=== PATIENT | male | born 1955 | race Caucasian/White ===

== ENCOUNTER 2020-11-23 09:02 | Outpatient (CLI) | payer MEDICARE, SELFPAY | END 2020-11-23 09:03 | disposition home or self-care (01) | LOC: ANHCOVIDVC 09:03 | PROVIDERS: PCP Family Medicine Adolescent Medicine | DX: Z23 Encounter for immunization (principal) | CPT/HCPCS: 0001A; 91300 ==

== ENCOUNTER 2020-12-14 09:01 | Outpatient (CLI) | payer MEDICARE, SELFPAY | END 2020-12-14 09:02 | disposition home or self-care (01) | LOC: ANHCOVIDVC 09:03 | PROVIDERS: PCP Family Medicine Adolescent Medicine | DX: Z23 Encounter for immunization (principal) | CPT/HCPCS: 0002A; 91300 ==

== ENCOUNTER 2025-08-03 01:49 | Day surgery (SDC) | payer MEDICARE, SELFPAY ==
[2025-07-26 08:59] VITALS: BMI 20.2
--- OUTSIDE RECORDS SUMMARY | 2025-08-03 01:52 | XMS_ITS | Clinical Summary ---
Author Organization [facility] Address [address] [place] [id number] Care Team Providers Care Supervisor Metal Fabricating Name Role Phone José Antonio Ramos MD Primary Care Provider [phone] Social History Tobacco Use Types Packs/Day Years Used Date Smoking Tobacco: Never Assessed Sex and Gender Information Value Date Recorded Sex Assigned at Not on file Legal Sex Male 7:21 PM CDT Gender Identity Not on file Sexual Orientation Not on file Plan of Treatment Health Maintenance Due Date Last Done Comments Colorectal Cancer Screening Colonoscopy (10 Years) 1955 Hepatitis C 1971 DTaP, Tdap and Td Vaccines ( 1 - Tdap) 02/24/1972 Pneumococcal Vaccine: 50+ Ye ars (1 of 1 - PCV) 2003 Zoster Vaccines (1 of 2) 2003 COVID-19 Vaccine ( - 2024-2 6 season) 2025 Influenza Adult (#1) 2025 RSV Immunization or 60+ Years (1 - 1-dose 75+ series) 02/24/2028 Hepatitis A Vaccines Aged Out No long er eligible based on patient's age to complete this topic Meningococcal B Vaccine Aged Out No l onger eligible based on patient's age to complete this topic Meningococcal Vaccine Aged Out No alyssa sanford eligible based on patient's age to complete this topic RSV Immunizations Under 20 Months Aged Out No longer eligible based on patient's age to complete this topic Care Teams Supervisor Metal Fabricating Relationship Specialty Start Date End Date José Antonio Ramos MD [address] [place] [id number] PCP - General 04/29/11
--- OUTSIDE RECORDS SUMMARY | 2025-08-03 01:52 | XMS_ITS | Clinical Summary ---
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 Gender Identity Not on file Sexual Orientation Not on file Plan of Treatment Health Maintenance Due Date Last Done Comments Hepatitis C Virus (HCV) Screening 1955 TdaP Immunization 1955 Cologuard 1998 Colonoscopy 1998 Colorectal Cancer Screening 1998 Immunochemical Fecal Occult Blood 1998 Pneumococcal Immunization (5 0+ years) (1 of 1 - PCV) 2003 Influenza Immunization (#1) 05/22/202506/22, 07/06/2019, 07/07/2018 SARS-COV-2 Immunization ( - season) 2025 08/29/2021, 12/14/2020, 11/23/2020 Respiratory Syncytial Virus (RSV) Immunization (Adult) (1 - 1-dose 75+ series) 02/24/2028 Zoster Immunization Completed 10/24/2020, 08/25/2020 Hepatitis B Immunization Aged Out No longer eligible based on patient's age to complete this topic Human Papillomavirus (HPV) Immunization Aged Out No longer eligible b ased on patient's age to complete this topic Meningococcal Immunization (ACWY) Aged Out No longer eligible b ased on patient's age to complete this topic Rotavirus Immunization Aged Out No lo nger eligible based on patient's age to complete this topic
[2025-08-03 06:51] VITALS: BP 157/76; PULSE 83; RESP 18; TEMP 36.5; O2SAT 99; BMI 19.5
--- NOTE | 2025-08-03 06:51 | WPDANESEPPF ---
Anes - Initial Pre Proc Eval Procedure: Operation Date: 08/03/25 08:00 Proposed Procedures p Screening Colonoscopy - Flaquito Buckley MD Date/Time: 08/03/25 06:51 Surgeon: Flaquito Buckley MD Pre Op Diagnosis: Screening Patient Data Age: 70 Gender: M Height: 1.68 m Weight: 57 kg Allergies Allergy/AdvReac Type Severity Reaction Status Date / Time No Known Allergies Allergy Verified 08/03/25 06:48 Home Medications ?Medication ?Instructions ?Recorded ?Confirmed ?Type minoxidil 2.5 mg tablet 2.5 mg PO DAILY 10/05/23 08/03/25 History vitamin B complex 1 tablet PO DAILY 10/20/23 08/03/25 History tadalafil 5 mg tablet (Cialis) 5 mg PO DAILY #90 tabs 12/12/24 08/03/25 Rx cholecalciferol (vitamin D3) 10 10 mcg PO DAILY 01/30/25 08/03/25 History mcg (400 unit) capsule (Vitamin D3) triamcinolone acetonide 0.1 % 1 applic topical BID PRN eczema 01/30/25 08/03/25 Rx topical cream #80 grams atorvastatin 20 mg tablet See Rx Instructions .Route 02/08/25 08/03/25 Rx .COMPLEX #100 tabs hydrocortisone 2.5 % topical cream 1 applic RECTAL DAILY PRN 05/03/25 08/03/25 Rx with perineal applicator hemorrhoids #30 grams (Anusol-HC) Patient hx anesthesia problems: none Family hx anesthesia problems: none Results Review: All pre-operative results and documents have been reviewed as part of the pre-operative evaluation. [facility] Past Medical History Medical History (Updated 08/02/25 @ 10:07 by Oleksandr Haas DO) GERD (gastroesophageal reflux disease) Pure hypercholesterolemia, unspecified Benign cyst of right kidney Orbital fracture Family History Family History (Updated 05/03/25 @ 09:53 by Kamala Zapata CMA) Father Throat cancer Mother Breast cancer Cancer of spine Social History Social History (Updated 05/03/25 @ 09:55 by Kamala Zapata CMA) Smoking status: Never smoker Alcohol intake: current Drinks per week: 3 Substance use: never Substance use type: does not use Do You Feel Safe in your Home?: Yes Lack of Transportation: No Lack of Food: Never True Current Housing: I Have Housing Concerned About Future Housing: No Difficulty Paying Gas/Electric Bills: No Difficulty Paying for Meds: No Currently Unemployed: No Education: Trade/Vocational Certificate Difficulty w/ Childcare or Family Care: No Anes - Eval Final PreProcedure Day of Procedure 08/03/25 06:51 Patient weight: normal Heart: regular rate and rhythm Lungs: clear to auscultation and normal air movement Airway: Mallampati scale class II Neurological: alert and oriented Last oral intake: >/= 8 hours ASA classification: II Emergent: no Anesthetic plan: proceed Anesthesia type and monitoring: general GIVS and standard monitoring Results Review: All pre-operative results and documents have been reviewed as part of the pre-operative evaluation. Informed Consent: The patient's anesthetic plan and its attendant risks and benefits were discussed with the patient/family/POA. Questions were solicited and answers provided to the satisfaction of the patient/family/POA.
[2025-08-03] MEDS: LACTATED RINGERS 1,000 ML 150 ML IV CONT (06:54)
--- NOTE | 2025-08-03 07:45 | PM.HPGS ---
History of Present Illness History of Present Illness Consent: Risks, benefits, and alternatives have been discussed and questions answered. Patient agrees to proceed with procedure. Chief complaint: Screening Narrative: Neal Keith is a 70 year old male here for screening colonoscopy, last one 2012 Review of Systems Review of Systems: All systems reviewed & are unremarkable except as noted in HPI and below PMFSH Past Medical History Medical History (Updated 08/03/25 @ 07:45 by Flaquito Buckley MD) Colon cancer screening GERD (gastroesophageal reflux disease) Pure hypercholesterolemia, unspecified Benign cyst of right kidney Orbital fracture Family History Family History (Updated 05/03/25 @ 09:53 by Kamala Zapata CMA) Father Throat cancer Mother Breast cancer Cancer of spine Social History Social History (Updated 05/03/25 @ 09:55 by Kamala Zapata CMA) Smoking status: Never smoker Alcohol intake: current Drinks per week: 3 Substance use: never Substance use type: does not use Do You Feel Safe in your Home?: Yes Lack of Transportation: No Lack of Food: Never True Current Housing: I Have Housing Concerned About Future Housing: No Difficulty Paying Gas/Electric Bills: No Difficulty Paying for Meds: No Currently Unemployed: No Education: Trade/Vocational Certificate Difficulty w/ Childcare or Family Care: No Meds Home Medications and Allergies Home Medications ?Medication ?Instructions ?Recorded ?Confirmed ?Type minoxidil 2.5 mg tablet 2.5 mg PO DAILY 10/05/23 08/03/25 History vitamin B complex 1 tablet PO DAILY 10/20/23 08/03/25 History tadalafil 5 mg tablet (Cialis) 5 mg PO DAILY #90 tabs 12/12/24 08/03/25 Rx cholecalciferol (vitamin D3) 10 10 mcg PO DAILY 01/30/25 08/03/25 History mcg (400 unit) capsule (Vitamin D3) triamcinolone acetonide 0.1 % 1 applic topical BID PRN eczema 01/30/25 08/03/25 Rx topical cream #80 grams atorvastatin 20 mg tablet See Rx Instructions .Route 02/08/25 08/03/25 Rx .COMPLEX #100 tabs hydrocortisone 2.5 % topical cream 1 applic RECTAL DAILY PRN 05/03/25 08/03/25 Rx with perineal applicator hemorrhoids #30 grams (Anusol-HC) Allergies Allergy/AdvReac Type Severity Reaction Status Date / Time No Known Allergies Allergy Verified 08/03/25 06:48 Vital Signs Vital Signs - 24 hr 08/03/25 06:51 Temperature 97.7 F Pulse Rate 83 Respiratory Rate 18 Blood Pressure 157/76 H Pulse Oximetry 99 Oxygen Delivery Room Air Exam Const: General: comfortable and no acute distress HENMT: Face/Nose/Sinus: Normal nares present Eyes: General: appearance normal, both eyes and all related structures Resp: Auscultation: clear to auscultation bilaterally Cardio: Rate: regular rate Rhythm: regular rhythm GI: Inspection: non-distended GI Palp: Yes Soft to palpation Skin: General skin exam: normal color Extrem: General: normal to inspection Psych: Mental Status: mental status grossly normal Assessment and Plan Assessment and plan (1) Colon cancer screening: Code(s): Z12.11 - Encounter for screening for malignant neoplasm of colon Status: Acute Assessment and Plan: colonoscopy
--- NOTE | 2025-08-03 07:58 | S_PTH ---
PATIENT: Neal Keith LOC: [facility]#:[id number] AGE/SX: 70/M ROOM: RE08/03/[address]: Flaquito Buckley MD : 1955 BED: DIS: 08/03/2025 SPEC #: [id number] RECD: 08/03/25 09:49 STATUS: VICTORIANO REVick #: [id number] SHAWNA: 08/03/25 07:[address]: Flaquito Buckley DEPT: [facility] Surgical RECD BY: Clari Herndon ENTERED: 08/03/25 09:49 SP TYPE: Surgical OTHR DR: Margaux Duong DO Tissues: A - Colon Polypectomy Procedures: Hematoxylin and Eosin Stain Gross and Microscopic Level 4
[2025-08-03 08:01] VITALS: BP 103/59; PULSE 63; RESP 18; O2SAT 97
[2025-08-03 08:11] VITALS: BP 117/62; PULSE 57; RESP 14; O2SAT 99
[2025-08-03 08:21] VITALS: BP 133/80; PULSE 67; RESP 17; O2SAT 100
== END 2025-08-03 08:35 | disposition home or self-care (01) ==
PROVIDERS: PCP Family Medicine; Visit Provider Internal Medicine Gastroenterology
PROC: 0DJD8ZZ Inspection of Lower Intestinal Tract, Via Natural or Artificial Opening Endoscopic (ICD-10-PCS; CPT 45378; principal; 2025-08-03 08:00)
DX: Z12.11 Encounter for screening for malignant neoplasm of colon (principal); D12.2 Benign neoplasm of ascending colon; K57.30 Diverticulosis of large intestine without perforation or abscess without bleeding; K64.8 Other hemorrhoids; K64.4 Residual hemorrhoidal skin tags
CPT/HCPCS: 45385; 88305; J2003; J2704; J7120